=== PATIENT | female | born 2000 | race Caucasian/White ===

== ENCOUNTER 2020-09-04 20:48 | Emergency (ER) | payer BC, SELFPAY ==
[2020-09-04 21:32] VITALS: BP 153/93; PULSE 84; RESP 16; TEMP 37.2; O2SAT 99
[2020-09-04 21:55] LABS: Add Urine Microscopic? YES; Appearance Urine Cloudy (Clear); Bacteria Urine 1+ /hpf; Bilirubin Urine Negative (Negative); Blood Urine 3+ (Negative); Color Urine Yellow (Yellow); Glucose Urine UA Negative (Negative); Ketones Urine Negative (Negative); Leukocyte Esterase Ur 3+ LEU/UL (Negative); Mucus Urine Rare /lpf; Nitrate Urine Negative (Negative); Protein Urine 1+ mg/dL (Negative); RBC Urine >75 /hpf (0-2); Specific Grav Ur 1.006 (1.001-1.035); Squamous Epithelial Cell Urine Many /hpf (Few); Urobilinogen Urine Negative mg/dL (<2.0); WBC Urine >75 /hpf
--- NOTE | 2020-09-04 22:50 | ED.FEMALEGU ---
HPI - Female Genitourinary General Chief complaint: Urogenital-Female Stated complaint: blood in urine Time Seen by Provider: 09/04/20 22:44 History of Present Illness HPI Narrative: Right low back pain for a few days. Dysuria, urinary frequency since yesterday. Noted blood in her urine this morning. No fever, chills, nausea, vomiting, abdominal pain. Related Data Allergies Allergy/AdvReac Type Severity Reaction Status Date / Time No Known Allergies Allergy Verified 09/04/20 21:37 Review of Systems Review of Systems: All systems reviewed & are unremarkable except as noted in HPI and below Cardiovascular: Cardiovascular: Denies chest pain Respiratory: Respiratory: Denies dyspnea Gastrointestinal: Gastrointestinal: Denies abdominal pain, Denies nausea and Denies vomiting Genitourinary: Genitourinary: Reports hematuria, Reports nocturia and Reports dysuria Musculoskeletal: Musculoskeletal: Reports back pain Exam Const: General: healthy appearing, no acute distress and alert Orientation/consciousness: patient oriented x3 HENMT: Head: normal to inspection Neck: Neck: normal visual inspection Chest: Chest palpation & inspection: tenderness Resp: Effort & Inspection: normal respiratory effort Auscultation: clear to auscultation bilaterally, no rales, no rhonchi and no wheezes Cardio: Jugular venous distension: no JVD Rate: regular rate Rhythm: regular rhythm Heart sounds: no murmurs GI: Inspection: non-distended GI Palp: Yes Soft to palpation and No Tenderness to palpation present (GI) Back/Spine/Pelvis: Back: no CVA tenderness Skin: General skin exam: normal color Neuro: General: patient oriented x3 and moves all extremities Speech: normal speech Extrem: General: no edema Psych: Appearance: well kempt Affect: normal affect Course Vital Signs Vital signs: Vital Signs Temperature 37.2 C 09/04/20 21:32 Pulse Rate 84 09/04/20 21:32 Respiratory Rate 16 09/04/20 21:32 Blood Pressure 153/93 H 09/04/20 21:32 Pulse Oximetry 99 09/04/20 21:32 Temperature 37.2 C 09/04/20 21:32 Pulse Rate 69 09/05/20 00:39 Respiratory Rate 14 09/05/20 00:39 Blood Pressure 132/76 09/05/20 00:39 Pulse Oximetry 100 09/05/20 00:39 MDM - Female Genitourinary MDM Narrative Medical decision making narrative: UA not true clean cath, but suggests UTI Differential Diagnosis Differential diagnosis: Likely urinary tract infection, ovarian cyst and cystitis Medical Records Attestation: I reviewed the patient's medical records. Lab Data Attestation: I reviewed the patient's lab results. Labs: Lab Results 09/04/20 Range/Units 21:42 Urine Color Yellow (Yellow) Urine Appearance Cloudy H (Clear) Urine pH 8.0 (5.0-9.0) Ur Specific [place] 1.006 (1.001-1.035) Urine Protein 1+ H (Negative) mg/dL Urine Glucose (UA) Negative (Negative) mg/dL Urine Ketones Negative (Negative) mg/dL Ur Blood (Man) 3+ H (Negative) Urine Nitrate Negative (Negative) Urine Bilirubin Negative (Negative) Urine Urobilinogen Negative (<2.0) mg/dL Leukocyte Esterase Rfl 3+ H (Negative) JORDAN/UL Urine RBC >75 H (0-2) /hpf Urine WBC >75 H /hpf Ur Squamous Epith Cells Many H (Few) /hpf Urine Bacteria 1+ H /hpf Urine Mucus Rare /lpf UCG Bedside Result Negative Reference Range: Negative Urine Characteristics Cloudy Discharge Plan Discharge Clinical Impression: Urinary tract infection Patient Disposition: Home, Self-Care Condition: Stable Instructions: Antibiotic Form, Urinary Tract Infection in Women (ED) Prescriptions: New ondansetron HCl [Zofran] 4 mg tablet 4 mg PO Q6H PRN (Reason: nausea and vomiting) Qty: 10 RF: 0 phenazopyridine [Pyridium] 200 mg tablet 200 mg PO TID PRN (Reason: pain) Qty: 5 RF: 0 nitrofuranto
[2020-09-04] MEDS: PHENAZOPYRIDINE HCL 100 MG TABLET 200 MG PO (23:11)
[2020-09-04] MEDS: NITROFURANTOIN MONOHYD MACROCR 100 MG CAP PO (23:11)
[2020-09-04] MEDS: KETOROLAC (*BKC) 60 MG/2 ML VIAL IM (23:12)
[2020-09-04 23:14] VITALS: BP 137/83; PULSE 92; RESP 14; O2SAT 100
[2020-09-05] MEDS: ONDANSETRON HCL ODT 4 MG TABLET PO (00:07)
[2020-09-05 00:39] VITALS: BP 132/76; PULSE 69; RESP 14; O2SAT 100
== END 2020-09-05 00:39 | disposition home or self-care (01) ==
PROVIDERS: Emergency Medicine; Emergency Provider Emergency Medicine
DX: N39.0 Urinary tract infection, site not specified (principal)
CPT/HCPCS: 81001; 81025; 87077; 87086; 87088; 87186; 96372; 99283; A9270; J1885